=== PATIENT | male | born 1995 | race Caucasian/White ===

== ENCOUNTER 2022-09-25 02:57 | Emergency (ER) | payer OTHER, SELFPAY ==
[2022-09-25 03:00] VITALS: BP 161/103; PULSE 75; RESP 16; TEMP 36.4; O2SAT 100; BMI 24.9
[2022-09-25 03:01] VITALS: BP 161/103
--- NOTE | 2022-09-25 03:10 | ECG_ITS ---
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
[2022-09-25 03:11] VITALS: BP 152/89; PULSE 86; RESP 17
--- NOTE | 2022-09-25 03:30 | ED.GENADUL1 ---
HPI - General Adult General Chief complaint: Weakness Stated complaint: Hypoglycemia Time Seen by Provider: 09/25/22 03:08 Source: patient Mode of arrival: walk-in History of Present Illness HPI narrative: the patient presenting with three weeks history of suspected low blood sugar was only one confirmed blood sugar reading that was in the 50s one week ago, the patient mentioned dealing with hypoglycemia and being jittery since a very long time, but for the last three weeks it got worse he recently was exposed to COVID 19 as his mother was sick 3 weeks ago . The patient mentioned that he feels that sometimes certain foods will drop his blood sugar he does not have any nausea vomiting chest pain or any abdominal pain he denies any organic symptoms other than the feeling of adrenaline as he discribed through out his body that comes for few seconds and resolved , he admits of having history of any anxiety but he has not seen any psychiatrist he only take Benadryl at home The patient denies any suicidal ideation or any anxiety in the moment Review of systems otherwise negative Related Data Allergies Allergy/AdvReac Type Severity Reaction Status Date / Time No Known Drug Allergies Allergy Verified 09/25/22 03:05 Review of Systems ROS Status of ROS 10 or more systems reviewed and unremarkable except as noted in history and below Exam Narrative Exam Narrative: Nurses notes and vital signs reviewed and patient is not hypoxic. General: Well-appearing and in no apparent distress. Skin: Warm, dry, no pallor noted. No rash. Head: Normocephalic, atraumatic. Neck: Supple, non-tender. Eye: Pupils are equal, round and EOMI. No scleral icterus. Ears, Nose, Mouth, and Throat: TM are clear, no nasal mucosal hypertrophy. Oral mucosa is moist, no posterior oropharynx erythema, uvula is mid-line Cardiovascular: Regular Rate and Rhythm without murmur, gallop or rub. Respiratory: No accessory muscle use or respiratory distress. Lungs are clear to auscultation, no wheezing, rales or rhonchi Chest Wall: no tenderness Back: No midline thoracic or lumbar vertebral tenderness. No CVA tenderness Musculoskeletal: normal ROM, no calf or popliteal tenderness, no lower extremity edema/swelling GI: Abdomen is soft, non-distended. Normal bowel sounds. No masses appreciated. No tenderness to palpation. No rebound, guarding, or rigidity noted. Neurological: A&O x4. No cranial nerve dysfunction observed. No truncal ataxia. Moves all extremities. Sensation intact. Psychiatric: Cooperative and interactive. Normal mood and affect. Constitutional Vital Signs - 24 hr 09/25/22 03:00 09/25/22 03:01 09/25/22 03:11 Temperature 97.6 F Pulse Rate 86 Pulse Rate [Monitor] 75 Respiratory Rate 16 17 Blood Pressure 161/103 H 152/89 H Blood Pressure [Right Arm] 161/103 H Pulse Oximetry 100 Oxygen Delivery Method Room Air Course Vital Signs Vital signs: Vital Signs Temperature 97.6 F 09/25/22 03:00 Pulse Rate 75 09/25/22 03:00 Respiratory Rate 16 09/25/22 03:00 Blood Pressure 161/103 H 09/25/22 03:00 Pulse Oximetry 100 09/25/22 03:00 Oxygen Delivery Method Room Air 09/25/22 03:00 Temperature 97.6 F 09/25/22 03:00 Pulse Rate 86 09/25/22 03:11 Respiratory Rate 17 09/25/22 03:11 Blood Pressure 152/89 H 09/25/22 03:11 Pulse Oximetry 100 09/25/22 03:00 Oxygen Delivery Method Room Air 09/25/22 03:00 Medical Decision Making MDM Narrative Medical decision making narrative: EKG showing sinus rhythm with a heart rate of eighty-seven ST the patient or depression patient blood workup showed no acute significant pathology and his EKG as well his presentation is mostly secondary to possible anxiety although the patient still needed to follow up with his primary care doctor for further evaluation, I also explained to the patient that he had been evaluated at that wrist before and he did follow-up with his primary care doctor for further evaluation and referred to psychiatry for anxiety The patient is to followup with primary care physician in next 2-3 days or to return to the emergency department should any of the signs or symptoms worsen or new symptoms develop. The patient agrees with the following Diagnosis and Treatment plan and the patient will be discharged home. Lab Data Labs: Lab Results 09/25/22 Range/Units 03:10 WBC 7.6 (4.0-11.0) 10^3/uL RBC 5.20 (4.70-6.10) 10^6/uL Hgb 15.5 (14.0-18.0) g/dL Hct 45.5 (42.0-54.0) % MCV 87.5 (80.0-94.0) fL MCH 29.8 (25.9-34.0) pg MCHC 34.1 (29.9-35.2) g/dL RDW 12.0 (11.0-15.0) % Plt Count 196 (150-450) 10^3/uL MPV 11.4 (9.5-13.5) fL Neut % (Auto) 51.3 (43.0-75.0) % Lymph % (Auto) 38.4 (20.5-60.0) % [place] % (Auto) 7.0 (1.7-12.0) % Eos % (Auto) 1.4 (0.9-7.0) % Baso % (Auto) 0.5 (0.2-2.0) % Neut # (Auto) 3.9 (1.4-6.5) 10^3/uL Lymph # (Auto) 2.9 (1.2-3.8) 10^3/uL [place] # (Auto) 0.5 (0.3-0.8) 10^3/uL Eos # (Auto) 0.1 (0.0-0.7) 10^3/uL Baso # (Auto) 0.0 (0.0-0.1) 10^3/uL Abs Immat Gran (auto) 0.11 H (0.00-0.03) 10^3/uL Imm/Tot Granulo (auto) 1.4 H (0.0-0.5) % Sodium 139 (136-145) mmol/L Potassium 3.7 (3.5-5.1) mmol/L Chloride 102 (98-107) mmol/L Carbon Dioxide 28.7 (21.0-32.0) mmol/L Anion Gap 12.0 BUN 17.0 (7.0-18.0) mg/dL Creatinine 1.12 (0.70-1.30) mg/dL Est GFR ( Amer) >60 (>=60) Est GFR (Non-Af Amer) >60 (>=60) BUN/Creatinine Ratio 15.2 Glucose 124 H (74-106) mg/dL Calcium 8.8 (8.5-10.1) mg/dL Total Bilirubin 1.1 H (0.2-1.0) mg/dL AST 23 (15-37) U/L ALT 21 (16-63) U/L Alkaline Phosphatase 79 (46-116) U/L Total Protein 7.5 (6.4-8.2) g/dL Albumin 4.3 (3.4-5.0) g/dL Globulin 3.2 g/dL Albumin/Globulin Ratio 1.3 Ethanol Quant <3 mg/dL Discharge Plan Discharge Chief Complaint: Weakness Clinical Impression: Dizziness Patient Disposition: Home, Self-Care Time of Disposition Decision: 04:04 Condition: Good Mode of Transportation: Private Vehicle Instructions: Dizziness (ED) Stand Alone Forms: Portal Instructions Referrals: Physician,Non-Staff, MD [Primary Care Provider] - 1 week
[2022-09-25 03:35] LABS: Ethanol <3 mg/dL
[2022-09-25 03:40] LABS: Alanine Aminotransferase 21 U/L (16-63); Albumin Globulin Ratio 1.3; Albumin Level 4.3 g/dL (3.4-5.0); Alkaline Phosphatase 79 U/L (46-116); Aspartate Amino Transferase 23 U/L (15-37); BUN Creatinine Ratio 15.2; Bilirubin Total 1.1 mg/dL (0.2-1.0); Calcium 8.8 mg/dL (8.5-10.1); Carbon Dioxide 28.7 mmol/L (21.0-32.0); Chloride 102 mmol/L (98-107); Estimated GFR (African America >60 (>=60); Estimated GFR (Non-African Ame >60 (>=60); Globulin 3.2 g/dL; Glucose 124 mg/dL (74-106); Potassium 3.7 mmol/L (3.5-5.1); Sodium 139 mmol/L (136-145); Total Protein 7.5 g/dL (6.4-8.2)
[2022-09-25 03:45] LABS: Basophils Percent Auto 0.5 % (0.2-2.0); Eosinophils Absolute Auto 0.1 10^3/uL (0.0-0.7); Eosinophils Percent Auto 1.4 % (0.9-7.0); Hematocrit 45.5 % (42.0-54.0); Hemoglobin 15.5 g/dL (14.0-18.0); Immature Granulocytes Abs Auto 0.11 10^3/uL (0.00-0.03); Immature Granulocytes Pct Auto 1.4 % (0.0-0.5); Lymphocytes Absolute Auto 2.9 10^3/uL (1.2-3.8); Lymphocytes Percent Auto 38.4 % (20.5-60.0); Mean Corpuscular HGB Conc 34.1 g/dL (29.9-35.2); Mean Corpuscular Hemoglobin 29.8 pg (25.9-34.0); Mean Corpuscular Volume 87.5 fL (80.0-94.0); Mean Platelet Volume 11.4 fL (9.5-13.5); Monocytes Absolute Auto 0.5 10^3/uL (0.3-0.8); Neutrophils Absolute Auto 3.9 10^3/uL (1.4-6.5); Neutrophils Percent Auto 51.3 % (43.0-75.0); Platelet Count 196 10^3/uL (150-450); White Blood Count 7.6 10^3/uL (4.0-11.0)
[2022-09-25 05:02] LABS: Cannabinoid Screen Urine NEGATIVE (NEGATIVE); Phencyclidine Screen Urine NEGATIVE (NEGATIVE)
[2022-09-25 05:03] LABS: Amphetamine Screen Urine NEGATIVE (NEGATIVE); Barbiturates Screen Urine NEGATIVE (NEGATIVE); Benzodiazepines Screen Urine NEGATIVE (NEGATIVE); Buprenorphine Screen Urine NEGATIVE (NEGATIVE); Cocaine Screen Urine NEGATIVE (NEGATIVE); Methadone Screen Urine NEGATIVE (NEGATIVE); Methamphetamines Screen Urine NEGATIVE (NEGATIVE); Opiate Screen Urine NEGATIVE (NEGATIVE); Oxycodone Screen Urine NEGATIVE (NEGATIVE); Tricyclic Antidepressant Urine NEGATIVE (NEGATIVE)
== END 2022-09-25 04:13 | disposition home or self-care (01) ==
PROVIDERS: Emergency Provider Emergency Medicine; PCP Family Medicine
DX: R42 Dizziness and giddiness (principal)
CPT/HCPCS: 36415; 36416; 80053; 80307; 80320; 82948; 85025; 93005; 99284

== ENCOUNTER 2022-09-30 18:02 | Emergency (ER) | payer OTHER, SELFPAY ==
[2022-09-30 18:18] VITALS: BP 146/97; PULSE 91; RESP 15; TEMP 37; O2SAT 100; BMI 25.2
[2022-09-30 18:38] VITALS: BP 140/81; PULSE 78; PULSE 89; RESP 10; RESP 13; O2SAT 98
--- NOTE | 2022-09-30 18:50 | PC.NURSE ---
Pt. states that he was at urgent care yesterday 09/29 after having ongoing cold like symptoms and was started on zpack. Pt. states after starting Zpack he has felt like his heart has been racing. Pt. stated this morning he felt his legs were weak and at that time his blood pressure was high. Since then pt. states his legs feel better & his blood pressure has improved but he still feels like his heart is racing.
[2022-09-30 19:00] VITALS: BP 115/77; PULSE 74; RESP 8; O2SAT 97
--- NOTE | 2022-09-30 19:19 | ED_ITS ---
HPI - Chest Pain General Stated Complaint: TACHYCARDIA Time Seen by Provider: 09/30/22 19:14 Source: patient Mode of arrival: walk-in Limitations: no limitations History of Present Illness HPI narrative: patient exposed to COVID last week. Exposed to his mother with the illness. Describes his chest burning. not short of breath. Seen in Urgent care yesterday and prescribed zpak. last night felt like his heart was racing. Went to sleep. Again this AM heart racing and bP elevated. No nausea or shortness of breath. Related Data Home Medications Medication Instructions Recorded Confirmed azithromycin 250 mg tablet 250 mg PO DAILY 09/30/22 09/30/22 Allergies Allergy/AdvReac Type Severity Reaction Status Date / Time No Known Drug Allergies Allergy Verified 09/30/22 18:18 Review of Systems ROS Status of ROS 10 or more systems reviewed and unremarkable except as noted in history and below Cardiovascular Reports: palpitations PFSH PFSH Social History Smoking status: Never smoker Exam Constitutional Vital Signs - 24 hr 09/30/22 18:18 09/30/22 18:38 09/30/22 18:38 Temperature 98.6 F Pulse Rate 89 78 Pulse Rate [Monitor] 91 H Respiratory Rate 15 10 L 13 Blood Pressure 140/81 H 140/81 H Blood Pressure [Left Arm] 146/97 H Pulse Oximetry 100 98 98 Oxygen Delivery Method Room Air 09/30/22 19:00 09/30/22 19:30 09/30/22 20:00 Temperature Pulse Rate 74 88 75 Pulse Rate [Monitor] Respiratory Rate 8 L 8 L 21 Blood Pressure 115/77 144/90 H 132/90 H Blood Pressure [Left Arm] Pulse Oximetry 97 99 100 Oxygen Delivery Method 09/30/22 20:00 Temperature Pulse Rate 96 H Pulse Rate [Monitor] Respiratory Rate 13 Blood Pressure 132/90 H Blood Pressure [Left Arm] Pulse Oximetry 98 Oxygen Delivery Method Common normals: no apparent distress, oriented x3, no limitations and healthy appearing HENMT Common normals: normocephalic, head/scalp atraumatic and hearing grossly normal bilaterally Eye Common normals: PERRL, EOMs intact bilaterally and conjunctivae normal Respiratory Common normals: normal respiratory effort, no retractions, no use of accessory muscles and clear to auscultation bilaterally Cardio Common normals: regular rate, regular rhythm, S1 normal heart sound and S2 normal heart sound GI Common normals: Normal to inspection, nondistended, normoactive bowel sounds present, soft to palpation and non-tender Extremity Common normals: normal to inspection, full ROM, normal capillary refill and no joint enlargement Neuro Common normals: oriented x3, CN's II-XII intact bilaterally and moves all extremities Psych Appearance: grossly normal Course Vital Signs Vital signs: Vital Signs Temperature 98.6 F 09/30/22 18:18 Pulse Rate 91 H 09/30/22 18:18 Respiratory Rate 15 09/30/22 18:18 Blood Pressure 146/97 H 09/30/22 18:18 Pulse Oximetry 100 09/30/22 18:18 Oxygen Delivery Method Room Air 09/30/22 18:18 Temperature 98.6 F 09/30/22 18:18 Pulse Rate 96 H 09/30/22 20:00 Respiratory Rate 13 09/30/22 20:00 Blood Pressure 132/90 H 09/30/22 20:00 Pulse Oximetry 98 09/30/22 20:00 Oxygen Delivery Method Room Air 09/30/22 18:18 MDM - Chest Pain MDM Narrative Medical decision making narrative: patient presents complaining of heart racing which concerned him. States his BP was high at home. States he took cayenne pepper to lower his BP. Workup in the department unremarkable. Neg d-dimer and neg troponin. Normal EKG. mild elevation of BS. Patient before discharge states he was feeling anxious. States he needed some orange juice to help calm him down. Patient feeling better after drinking OJ. Discharged home to follow up with his family doctor Lab Data Labs: Lab Results 09/30/22 09/30/22 Range/Units 19:34 19:37 WBC 6.5 (4.0-11.0) 10^3/uL RBC 5.31 (4.70-6.10) 10^6/uL Hgb 15.7 (14.0-18.0) g/dL Hct 44.9 (42.0-54.0) % MCV 84.6 (80.0-94.0) fL MCH 29.6 (25.9-34.0) pg MCHC 35.0 (29.9-35.2) g/dL RDW 11.5 (11.0-15.0) % Plt Count 216 (150-450) 10^3/uL MPV 10.2 (9.5-13.5) fL Neut % (Auto) 71.8 (43.0-75.0) % Lymph % (Auto) 22.1 (20.5-60.0) % [place] % (Auto) 5.0 (1.7-12.0) % Eos % (Auto) 0.5 L (0.9-7.0) % Baso % (Auto) 0.3 (0.2-2.0) % Neut # (Auto) 4.6 (1.4-6.5) 10^3/uL Lymph # (Auto) 1.4 (1.2-3.8) 10^3/uL [place] # (Auto) 0.3 (0.3-0.8) 10^3/uL Eos # (Auto) 0.0 (0.0-0.7) 10^3/uL Baso # (Auto) 0.0 (0.0-0.1) 10^3/uL Abs Immat Gran (auto) 0.02 (0.00-0.03) 10^3/uL Imm/Tot Granulo (auto) 0.3 (0.0-0.5) % D-Dimer <0.19 (<=0.59) mg/L FEU Sodium 135 L (136-145) mmol/L Potassium 3.6 (3.5-5.1) mmol/L Chloride 102 (98-107) mmol/L Carbon Dioxide 28.5 (21.0-32.0) mmol/L Anion Gap 8.1 BUN 13.0 (7.0-18.0) mg/dL Creatinine 1.04 (0.70-1.30) mg/dL Est GFR ( Amer) >60 (>=60) Est GFR (Non-Af Amer) >60 (>=60) BUN/Creatinine Ratio 12.5 Glucose 100 (74-106) mg/dL Calcium 9.0 (8.5-10.1) mg/dL Troponin I High Sens <4.0 L (4.0-76.1) pg/mL Adenovirus (PCR) Not detected (NOT DETECTE) C. pneumoniae DNA (PCR) Not detected (NOT DETECTE) Coronavirus Type OC43 Not detected (NOT DETECTE) Coronavirus Type HKU1 Not detected (NOT DETECTE) Coronavirus Type 229E Not detected (NOT DETECTE) Coronavirus Type NL63 Not detected (NOT DETECTE) Human Metapneumovir PCR Not detected (NOT DETECTE) M. pneumoniae (PCR) Not detected (NOT DETECTE) Parainfluenza PCR Not detected (NOT DETECTE) Parainfluenza 2 (PCR) Not detected (NOT DETECTE) Parainfluenza 3 (PCR) Not detected (NOT DETECTE) Parainfluenza 4 (PCR) Not detected (NOT DETECTE) RSV (RT-PCR) Not detected (NOT DETECTE) Entero/Rhino (PCR) Not detected (NOT DETECTE) SARS-CoV-2 (PCR) Not detected (NOT DETECTE) Bordetella pertussis (PCR) Not detected (NOT DETECTE) B parapertussis DNA PCR Not detected (NOT DETECTE) Influenza Type A (PCR) Not detected (NOT DETECTE) Influenza Type B (PCR) Not detected (NOT DETECTE) Discharge Plan Discharge Clinical Impression: Heart palpitations, Anxiety Patient Disposition: Home, Self-Care Prescriptions / Home Meds: No Action azithromycin 250 mg tablet 250 mg PO DAILY Instructions: Heart Palpitations (ED), Anxiety (ED) Additional Instructions: follow up your family doctor next week for recheck Stand Alone Forms: Portal Instructions Referrals: ANU SAN [Primary Care Provider] - 1 week
--- NOTE | 2022-09-30 19:23 | ECG_ITS ---
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
--- NOTE | 2022-09-30 19:23 | XR_ITS ---
[place] [id number] Patient Name: SILVIO JOSE MRN: [id number] date: 1995 Sex: M Assigned Patient Location: ER Current Patient Location: ER Accession/Order Number: [id number] Exam Date: 09/30/2022 19:45 Report Date: 09/30/2022 20:10 At the request of: JOSE DANIEL THURMAN Procedure: XR chest 1V EXAMINATION: XR chest 1V HISTORY: Palpitations COMPARISON: None. TECHNIQUE: Portable chest FINDINGS: The lung parenchyma is free of consolidation or infiltrate. No pneumothorax or pleural effusion. The cardiac, mediastinal and hilar contours are normal. The visualized osseous structures exhibit no gross abnormality. IMPRESSION: Normal chest x-ray Electronically authenticated by: WADE JOSEPH Date: 09/30/2022 20:10
[2022-09-30 19:30] VITALS: BP 144/90; PULSE 88; RESP 8; O2SAT 99
[2022-09-30 19:43] LABS: Adenovirus NOT DETECTED (NOT DETECTE); Bordetella parapertussis NOT DETECTED (NOT DETECTE); Coronavirus 229E NOT DETECTED (NOT DETECTE); Coronavirus HKU1 NOT DETECTED (NOT DETECTE); Coronavirus NL63 NOT DETECTED (NOT DETECTE); Coronavirus OC43 NOT DETECTED (NOT DETECTE); Human Metapneumovirus NOT DETECTED (NOT DETECTE); Human Rhinovirus/Enterovirus NOT DETECTED (NOT DETECTE); Influenza A NOT DETECTED (NOT DETECTE); Influenza B NOT DETECTED (NOT DETECTE); Mycoplasma pneumoniae NOT DETECTED (NOT DETECTE); Parainfluenza Virus 1 NOT DETECTED (NOT DETECTE); Parainfluenza Virus 2 NOT DETECTED (NOT DETECTE); Parainfluenza Virus 3 NOT DETECTED (NOT DETECTE); Parainfluenza Virus 4 NOT DETECTED (NOT DETECTE); Respiratory Syncytial Virus NOT DETECTED (NOT DETECTE); SARS-CoV-2 NOT DETECTED (NOT DETECTE)
[2022-09-30 19:54] LABS: Hematocrit 44.9 % (42.0-54.0); Hemoglobin 15.7 g/dL (14.0-18.0); Mean Corpuscular Hemoglobin 29.6 pg (25.9-34.0); Mean Corpuscular Volume 84.6 fL (80.0-94.0); Platelet Count 216 10^3/uL (150-450); Red Blood Count 5.31 10^6/uL (4.70-6.10); Red Cell Distribution Width 11.5 % (11.0-15.0); White Blood Count 6.5 10^3/uL (4.0-11.0)
[2022-09-30 19:55] LABS: Basophils Percent Auto 0.3 % (0.2-2.0); Eosinophils Percent Auto 0.5 % (0.9-7.0); Immature Granulocytes Abs Auto 0.02 10^3/uL (0.00-0.03); Immature Granulocytes Pct Auto 0.3 % (0.0-0.5); Lymphocytes Absolute Auto 1.4 10^3/uL (1.2-3.8); Lymphocytes Percent Auto 22.1 % (20.5-60.0); Mean Platelet Volume 10.2 fL (9.5-13.5); Monocytes Absolute Auto 0.3 10^3/uL (0.3-0.8); Neutrophils Absolute Auto 4.6 10^3/uL (1.4-6.5); Neutrophils Percent Auto 71.8 % (43.0-75.0)
[2022-09-30 20:00] VITALS: BP 132/90; PULSE 75; PULSE 96; RESP 13; RESP 21; O2SAT 100; O2SAT 98
[2022-09-30 20:05] LABS: D Dimer <0.19 mg/L FEU (<=0.59)
[2022-09-30 20:07] LABS: Anion Gap 8.1; BUN Creatinine Ratio 12.5; Carbon Dioxide 28.5 mmol/L (21.0-32.0); Chloride 102 mmol/L (98-107); Estimated GFR (African America >60 (>=60); Estimated GFR (Non-African Ame >60 (>=60); Glucose 100 mg/dL (74-106); Potassium 3.6 mmol/L (3.5-5.1); Sodium 135 mmol/L (136-145); Troponin I High Sensitivity <4.0 pg/mL (4.0-76.1)
== END 2022-09-30 21:23 | disposition home or self-care (01) ==
PROVIDERS: Emergency Provider Internal Medicine; PCP Family Medicine
DX: R00.2 Palpitations (principal); F41.9 Anxiety disorder, unspecified; Z20.822 Contact with and (suspected) exposure to COVID-19
CPT/HCPCS: 0202U; 36415; 71045; 80048; 84484; 85025; 85378; 93005; 99285

== ENCOUNTER 2022-10-13 00:37 | Emergency (ER) | payer OTHER, SELFPAY ==
[2022-10-13 00:41] VITALS: BP 160/101; PULSE 82; RESP 18; TEMP 36.7; O2SAT 99; BMI 24.4
[2022-10-13 00:42] VITALS: BP 160/101
--- NOTE | 2022-10-13 01:09 | CT_ITS ---
The [address] [address] Patient Name: SIVLIO JOSE MRN: [id number] date: 1995 Sex: M Assigned Patient Location: ER Current Patient Location: ER Accession/Order Number: [id number] Exam Date: 10/13/2022 01:35 Report Date: 10/13/2022 02:49 At the request of: FANNY MARKER Procedure: CT abdomen pelvis w con CT abdomen pelvis w con: 10/13/2022 1:35 AM EDT CLINICAL HISTORY: 27 years old Male with abd pain, rectal bleeding. TECHNIQUE: Axial CT images through the abdomen and pelvis are obtained after the intravenous administration of contrast. Coronal and sagittal reformations are also obtained. Dose reduction techniques were achieved by using automated exposure control and/or adjustment of mA and/or kV according to patient size and/or use of iterative reconstruction technique. COMPARISON: None available. FINDINGS: The lung bases are clear with no dependent infiltrate or effusion. The liver, gallbladder, spleen, pancreas and bilateral adrenal glands are unremarkable. The bilateral kidneys demonstrate normal enhancement without hydronephrosis. The bilateral ureters demonstrate no gross abnormality or obstruction. The stomach and small bowel are unremarkable. The appendix is visualized without inflammatory change. The colon is unremarkable. The bladder appears unremarkable. There is no evidence of aortic aneurysm present. No enlarged lymph nodes are seen. No free air or free fluid is seen. The prostate gland is within normal limits. The osseous structures appear unremarkable. IMPRESSION: No acute intra-abdominal inflammatory process identified. Electronically authenticated by: TOVA CONNELLY Date: 10/13/2022 02:49
--- NOTE | 2022-10-13 01:09 | ECG_ITS ---
The [facility] Test Date: 2022-10-13 Pat Name: SILVIO JOSE Department: Room: - Gender: Male Change Consultant: : 1995 Requested By: Order Number: [id number] Reading MD: STEVENSON PATTERSON Measurements Intervals [place] Rate: 79 P: 79 [place]: 126 QRS: 81 QRSD: 104 T: 60 QT: 368 QTc: 402 Interpretive Statements 1100 Sinus rhythm 9110 normal ECG Compared to ECG 09/30/2022 18:36:54 No significant changes Electronically Signed On 10-13-2022 7:17:24 EDT by STEVENSON PATTERSON
--- NOTE | 2022-10-13 01:14 | ED.GIBLEED1 ---
HPI - GI Bleed General Chief complaint: GI Bleed Stated complaint: BLOOD IN STOOL- COLD Time Seen by Provider: 10/13/22 00:51 Source: patient Mode of arrival: walk-in Limitations: no limitations History of Present Illness HPI Narrative: This 27-year-old male with a history of anxiety who has been seen in this emergency Department 3 times recently; once when he thought he had COVID 19 after being exposed to it and then for dizziness and then for anxiety presents for evaluation of rectal bleeding. He states for the past 4 days he has been having some bright red blood in his stool. He has also had What he describes as anxiety in his stomach. It was in his upper abdomen and has now moved down to his lower abdomen. He also states that his dizziness has been getting worse and he thinks it is related to the bleeding. He states initially there was just a small amount of bright red blood on the toilet paper when he used the bathroom and then he had a larger amount of blood associated with a soft bowel movement and now he is having some mild bleeding without having a bowel movement. He has had increasing dizziness and thinks it is related to the gastrointestinal bleeding. He has not had a fever. He denies any nausea or vomiting but states he has this anxiety in his stomach . I am unsure if this is nausea, turning or related to some kind of pain. He has not been vomiting. He denies any chest pain or shortness of breath. Related Data Allergies Allergy/AdvReac Type Severity Reaction Status Date / Time No Known Drug Allergies Allergy Verified 10/13/22 00:45 Review of Systems ROS Status of ROS 10 or more systems reviewed and unremarkable except as noted in history and below [facility] Social History Smoking status: Never smoker Exam Narrative Exam Narrative: Constitutional: Tall, thin, well-appearing adult male, no distress noted Vital signs reviewed, the patient is afebrile with a normal pulse, he is mildly hypertensive a blood pressure 140/80, he is not hypoxic with pulse ox 97 percent on room air HEENT, normocephalic atraumatic, mucous members are moist and pink, conjunctiva are pink Neck: Supple, no meningeal signs Resp: clear to auscultation with good air entry, there is no wheezing rhonchi or rales appreciated CVS: Regular rate and rhythm S1 and S2, no murmurs rubs or gallops appreciated Abdomen: Soft, nondistended, nontender, no rebound guarding or rigidity, no left lower quadrant tenderness appreciated. Rectal exam performed with RN as front end web developer. Small amount of mucus and pink blood in the rectal vault, no external or internal hemorrhoids appreciated, no rectal masses appreciated Ext: full range of motion, nontender Neuro: No focal deficits Psych:,, Cooperative, complains of anxiety but does not appear particularly anxious Constitutional Vital Signs - 24 hr 10/13/22 00:41 10/13/22 00:42 10/13/22 01:49 Temperature 98.1 F Pulse Rate 72 Pulse Rate [Monitor] 82 Respiratory Rate 18 12 Blood Pressure 160/101 H 144/85 H Blood Pressure [Left Arm] 160/101 H Pulse Oximetry 99 96 Oxygen Delivery Method Room Air 10/13/22 02:00 10/13/22 02:00 Temperature Pulse Rate 73 64 Pulse Rate [Monitor] Respiratory Rate 6 L 12 Blood Pressure 140/81 H 140/81 H Blood Pressure [Left Arm] Pulse Oximetry 97 97 Oxygen Delivery Method Course Vital Signs Vital signs: Vital Signs Temperature 98.1 F 10/13/22 00:41 Pulse Rate 82 10/13/22 00:41 Respiratory Rate 18 10/13/22 00:41 Blood Pressure 160/101 H 10/13/22 00:41 Pulse Oximetry 99 10/13/22 00:41 Oxygen Delivery Method Room Air 10/13/22 00:41 Temperature 98.1 F 10/13/22 00:41 Pulse Rate 64 10/13/22 02:00 Respiratory Rate 12 10/13/22 02:00 Blood Pressure 140/81 H 10/13/22 02:00 Pulse Oximetry 97 10/13/22 02:00 Oxygen Delivery Method Room Air 10/13/22 00:41 MDM - GI Bleed MDM Narrative Medical decision making narrative: 27-year-old male presents for evaluation of 4 days of painless rectal bleeding. He states that he started to have some bright red blood on the toilet paper approximately 4 days ago and since that time has had larger amounts of blood associated with bowel movements. He has not had any diarrhea. He denies any fever. He was recently seen here for evaluation of dizziness. He states his dizziness has gotten worse and he thinks it is because of the bleeding. I suspect that he meant that he was becoming anemic due to the bleeding. He is not having any chest pain or shortness of breath. He denies any nausea or vomiting. He did state that he had anxiety in his upper abdomen and moved to the lower abdomen. I was unclear whether this was nausea or cramps. His vital signs are stable. His abdomen was soft and nontender.. He did have mucous and some pink stool on the rectal exam. Due to the complaint of dizziness and EKG was ordered and is a sinus rhythm at 79 beats per minutes with no acute changes. An IV was placed and he was given IV fluids, Zofran and Pepcid. Routine labs are reviewed. The patient has a normal white count and hemoglobin is 14.7. When he was seen here recently for palpitations and dizziness routine labs are ordered and he had a hemoglobin of 15 at that time. I explained to him that his hemoglobin of 14.7 is basically the same number and I do not think that his dizziness is related to rectal bleeding. Remainder of his labs are normal with the exception of an elevated total bilirubin. The patient stated to me that this has been elevated for the past 6 years and nobody has able to explain to him why. A contrast enhanced CT scan of the abdomen and pelvis was ordered and is negative for acute findings. The patient was reevaluated at the medications and is feeling better. He has not had any tachycardia, hypotension dizziness or syncope in the emergency department. He stated he was feeling better after the medications. I reviewed the CT scan with him and gave him a copy of the report. He will be discharged home with a prescription for Zofraan, Pepcid and Flagyl to use for the next 7 days. He will be referred outpatient general surgery if these medications do not resolve his issues. He was encouraged to drink plenty of fluids and stay hydrated during the emergency department for worsening symptoms including abdominal pain, fever, heavy rectal bleeding or other concerns. Differential Diagnosis Differential diagnosis: Likely hemorrhoids, Lower gastrointestinal hemorrhage, hematochezia, melena, anal fissure and other (Hemorrhoids) Lab Data Labs: Lab Results 10/13/22 Range/Units 01:14 WBC 7.0 (4.0-11.0) 10^3/uL RBC 5.00 (4.70-6.10) 10^6/uL Hgb 14.7 (14.0-18.0) g/dL Hct 43.5 (42.0-54.0) % MCV 87.0 (80.0-94.0) fL MCH 29.4 (25.9-34.0) pg MCHC 33.8 (29.9-35.2) g/dL RDW 11.8 (11.0-15.0) % Plt Count 194 (150-450) 10^3/uL MPV 10.1 (9.5-13.5) fL Nucleated RBCs 0 Sodium 140 (136-145) mmol/L Potassium 4.1 (3.5-5.1) mmol/L Chloride 104 (98-107) mmol/L Carbon Dioxide 30.5 (21.0-32.0) mmol/L Anion Gap 9.6 BUN 16.0 (7.0-18.0) mg/dL Creatinine 1.12 (0.70-1.30) mg/dL Est GFR ( Amer) >60 (>=60) Est GFR (Non-Af Amer) >60 (>=60) BUN/Creatinine Ratio 14.3 Glucose 101 (74-106) mg/dL Calcium 8.7 (8.5-10.1) mg/dL Total Bilirubin 3.1 H (0.2-1.0) mg/dL AST 18 (15-37) U/L ALT 18 (16-63) U/L Alkaline Phosphatase 73 (46-116) U/L Total Protein 7.0 (6.4-8.2) g/dL Albumin 4.2 (3.4-5.0) g/dL Globulin 2.8 g/dL Albumin/Globulin Ratio 1.5 ECG Data Attestation: I personally reviewed and interpreted this ECG as follows: (Sinus rhythm at 79 beats for minute, normal axis, normal intervals, no acute ST segment elevation or T-wave inversion) Discharge Plan Discharge Chief Complaint: GI Bleed Clinical Impression: Elevated liver function tests, RB (rectal bleeding) Patient Disposition: Home, Self-Care Time of Disposition Decision: 03:23 Instructions: Rectal Bleeding (ED) Additional Instructions: Follow up with general surgery for further evaluation and treatment that may include a colonoscopy. Dr Griggs- [phone] Stand Alone Forms: Portal Instructions Referrals: ANU SAN [Primary Care Provider] - 1 week
[2022-10-13 01:24] LABS: Hematocrit 43.5 % (42.0-54.0); Hemoglobin 14.7 g/dL (14.0-18.0); Mean Corpuscular HGB Conc 33.8 g/dL (29.9-35.2); Mean Corpuscular Hemoglobin 29.4 pg (25.9-34.0); Mean Platelet Volume 10.1 fL (9.5-13.5); Nucleated Red Blood Cells 0; Platelet Count 194 10^3/uL (150-450); Red Cell Distribution Width 11.8 % (11.0-15.0)
[2022-10-13 01:39] LABS: Alanine Aminotransferase 18 U/L (16-63); Albumin Globulin Ratio 1.5; Albumin Level 4.2 g/dL (3.4-5.0); Alkaline Phosphatase 73 U/L (46-116); Anion Gap 9.6; Aspartate Amino Transferase 18 U/L (15-37); BUN Creatinine Ratio 14.3; Bilirubin Total 3.1 mg/dL (0.2-1.0); Calcium 8.7 mg/dL (8.5-10.1); Carbon Dioxide 30.5 mmol/L (21.0-32.0); Chloride 104 mmol/L (98-107); Estimated GFR (African America >60 (>=60); Estimated GFR (Non-African Ame >60 (>=60); Globulin 2.8 g/dL; Glucose 101 mg/dL (74-106); Potassium 4.1 mmol/L (3.5-5.1); Sodium 140 mmol/L (136-145)
[2022-10-13 01:49] VITALS: BP 144/85; PULSE 72; RESP 12; O2SAT 96
[2022-10-13] MEDS: ONDANSETRON PF 4 MG/2 ML VIAL IV (01:50)
[2022-10-13] MEDS: FAMOTIDINE/PF 20 MG/2 ML VIAL IV (01:50)
[2022-10-13] MEDS: 0.9 % SODIUM CHLORIDE 1,000 ML 999 ML IV (01:50)
[2022-10-13 02:00] VITALS: BP 140/81; PULSE 64; PULSE 73; RESP 12; RESP 6; O2SAT 97
[2022-10-13] MEDS: METRONIDAZOLE 250 MG TABLET 500 MG PO (03:50)
== END 2022-10-13 03:55 | disposition home or self-care (01) ==
PROVIDERS: Emergency Provider Emergency Medicine; PCP Family Medicine
DX: K62.5 Hemorrhage of anus and rectum (principal); R79.89 Other specified abnormal findings of blood chemistry; F41.9 Anxiety disorder, unspecified
CPT/HCPCS: 36415; 74177; 80053; 85027; 93005; 99285; Q9967